=== PATIENT | male | born 1985 ===

== ENCOUNTER 2017-12-22 19:14 | Emergency (ER) | payer BC ==
[2017-12-22] MEDS ORDERED: methylPREDNISolone Sodium Succinate 125 MG/2 ML SDV IM ONE (19:43)
[2017-12-22] MEDS ORDERED: Famotidine 20 MG Tab PO ONE (19:43)
--- NOTE | 2017-12-22 21:24 | EDM.PDOC ---
ED HPI GENERAL MEDICAL PROBLEM - General Chief Complaint: Skin Complaint Stated Complaint: HIVES Time Seen by Provider: 12/22/17 19:30 Source of Information: Reports: Patient History Limitations: Reports: No Limitations - History of Present Illness INITIAL COMMENTS - FREE TEXT/NARRATIVE: Patient is a 32-year-old male who presents ED complaining of hives to his chest , back, abdomen, and upper/lower extremities. Patient states after eating gumbo this evening at 1830 started developing a rash. States the only thing elevated and abnormal in the gumbo was orca. Patient may take some Benadryl 50 mg by mouth. While 45 minutes prior to arrival to the ED. Rash slightly got worse with admission to the ED. There is no wheezing, cough, shortness of breath, fever, sensation of throat swelling shut. He has no history of anaphylaxis. - Related Data Home Meds: Home Meds EPINEPHrine [Epipen 2-Regino] 0.3 mg IJ ONETIME #1 ml 12/22/17 [Rx] predniSONE [Prednisone] 40 mg PO QAM #10 tablet 12/22/17 [Rx] Past Medical History Endocrine/Metabolic History: Reports: Hypothyroidism - Past Surgical History HEENT Surgical History: Reports: Other (See Below) Other HEENT Surgeries/Procedures: tubes in ears Social & Family History - Family History Family Medical History: Noncontributory - Tobacco Use Smoking Status *Q: Current Every Day Smoker Years of Tobacco use: 19 Packs/Tins Daily: 0.5 - Caffeine Use Caffeine Use: Reports: Coffee - Recreational Drug Use Recreational Drug Use: Yes Drug Use in Last 12 Months: No Recreational Drug Type: Reports: Marijuana/Hashish ED ROS GENERAL - Review of Systems Review Of Systems: ROS reveals no pertinent complaints other than HPI. ED EXAM, SKIN/RASH Exam: See Below Exam Limited By: No Limitations General Appearance: Alert, WD/WN, No Apparent Distress Ears: Hearing Grossly Normal Nose: Normal Inspection Throat/Mouth: Normal Inspection, Normal Oropharynx, Normal Voice, No Airway Compromise Head: Atraumatic, Normocephalic Neck: Normal Inspection, Supple, Non-Tender, Full Range of Motion Respiratory/Chest: No Respiratory Distress, Lungs Clear, Normal Breath Sounds, No Accessory Muscle Use, Chest Non-Tender Cardiovascular: Normal Peripheral Pulses, Regular Rate, Rhythm, No Murmur Peripheral Pulses: 2+: Radial (L) Neurological: Alert, Oriented, CN II-XII Intact, Normal Cognition, No Motor/ Sensory Deficits Psychiatric: Normal Affect, Normal Mood Skin: Warm, Dry, Intact, Other (Hives) Location, Skin: Chest, Abdomen, Back, Upper Extremity, Right, Upper Extremity, Left, Lower Extremity, Right, Lower Extremity, Left Characteristics: Urticarial Associated features: No: Warmth, Tenderness, Swelling, Induration, Scaling, Lymphangitis, Inflammation, Crusting, Weeping, Rough Course - Vital Signs Last Recorded V/S: Last Vital Signs Temp 97.5 F 12/22/17 19:20 Pulse 70 12/22/17 19:20 Resp 16 12/22/17 19:20 BP 131/76 12/22/17 19:20 Pulse Ox 95 12/22/17 19:20 - Orders/Labs/Meds Meds: Medications Discontinued Medications Generic Name Dose Route Start Last Admin Trade Name Freq PRN Reason Stop Dose Admin Famotidine 40 mg 12/22/17 19:43 12/22/17 20:22 Pepcid PO 12/22/17 19:44 40 mg ONETIME ONE Administration Methylprednisolone Sodium Succinate 125 mg 12/22/17 19:43 12/22/17 20:22 Solu-Medrol IM 12/22/17 19:44 125 mg ONETIME ONE Administration - Re-Assessments/Exams Free Text/Narrative Re-Assessment/Exam: Patient had allergic reaction to something within the gumbo he ate at 1830. He has taken Benadryl 50 mg with onset of symptoms. No significant improvement noted yet. Patient presented to the ED 45 minutes after onset. Suspect there hasn't been adequate time for the Benadryl to take effect. I will order Pepcid 40 mg by mouth & Medrol 125 mg IM. 2114 Reassessment, hives have started to dissipate. VSS. Patient is ready to go home. The patient remained hemodynamically stable while under my care in the E.D. I discussed the concerning symptoms for which to returnto the E.D. with the patient/family. The patient/family verbalized understanding. All questions were answered. Departure - Departure Time of Disposition: 21:24 Disposition: Home, Self-Care 01 Condition: Good Clinical Impression: Allergic reaction to food Qualifiers: Encounter type: initial encounter Qualified Code(s): T78.1XXA - Other adverse food reactions, not elsewhere classified, initial encounter - Discharge Information Prescriptions: EPINEPHrine [Epipen 2-Regino] 0.3 mg IJ ONETIME #1 ml predniSONE [Prednisone] 40 mg PO QAM #10 tablet Instructions: Hives, [id number], Allergies, Adult Referrals: Madhuri Lim PA-C [Primary Care Provider] - Forms: ED Department Discharge Additional Instructions: Unclear what item in the gumbo caused the allergic reaction. Rash improved with administration of benadryl, pepcid, and steroids. Will have you take prednisone 40mg q am and pepcid 40mg every day for 5 days. May use benadryl 50mg every 6 hrs for itching. Please refrain from eating the gumbo. If this occurs again please document what you ate prior to gather information for potential causes. I have provided you a prescription for a epi pen. This should only be used if you develop an anaphylactic reaction. This would be sensation of throat closing shut, shortness of breath, wheezing, and swollen tongue.
== END 2017-12-22 21:55 | disposition home or self-care (01) ==
LOC: JD.ED 19:14
DX: T78.1XXA Other adverse food reactions, not elsewhere classified, initial encounter (principal); L50.0 Allergic urticaria; F17.210 Nicotine dependence, cigarettes, uncomplicated; E03.9 Hypothyroidism, unspecified
CPT/HCPCS: 96372; 99283; A9270; J2930